=== PATIENT | female | born 1935 | race Caucasian/White ===

== ENCOUNTER 2016-09-08 18:21 | Emergency (ER) | payer OTHER ==
--- NOTE | 2016-09-08 18:27 | EDPHY ---
HPI/HX/ROS/PE/MDM Narrative: CHIEF COMPLAINT: Mechanical fall HPI: This patient is an 86 year old female with history of Parkinson's disease who presents to the Emergency Department with a scalp hematoma and left leg laceration secondary to a mechanical fall while at campus this evening. Per EMS, she bumped into her daughter while using her walker, causing her to fall backwards hitting her occipital scalp on the concrete ground. Upon arrival, she complains of mild headache and pain to the site of her lower leg laceration. She denies any additional injuries. Denies speech changes, vision changes, or focal weakness. No anticoagulant use. REVIEW OF SYSTEMS: Aside from elements discussed in the HPI, a comprehensive 10-point review of systems was reviewed and is negative. PMH: Parkinson's disease. SOCIAL HISTORY: Daughter at bedside. PHYSICAL EXAM: General:Patient is alert, in no acute distress. Head: Hematoma and abrasion to the right occiput. ENT:Eyes are normal to inspection. ENT inspection normal. Neck: Normal inspection. Full range of motion. Respiratory:No respiratory distress. Breath sounds normal bilaterally. Cardiovascular: Regular rate and rhythm. Strong peripheral pulses. Normal cap refill. Abdomen:The abdomen is nontender to palpation. There are no peritoneal signs. There are normal bowel sounds. Back: Normal to inspection. No tenderness to palpation. Skin: Normal color. No rash. Warm and dry. Extremities: Full range of motion. 6cm curved laceration to the left lateral leg. Neuro: Oriented x3. Motor and sensory function at baseline. ED Course: ED COURSE: 1822: Took EMS report at bedside. 86-year-old female with Parkinson's disease presents with a hematoma and abrasion to her occiput and left lower leg laceration secondary to a mechanical fall. No evidence of additional injuries and no neurological deficits are found on exam. Will proceed with CT of the head and laceration repair. 0: CT of the head is normal per Dr. Romo, radiologist. 1904: I discussed imaging results with the patient and her daught. Laceration repair was performed by myself (see procedure note). The patient will be discharged home in good condition with wound care instructions and customary return precautions. PROCEDURES: Procedure: Laceration repair. Verbal consent was obtained from the patient. The 6cm laceration on the left lower leg was anesthetized using lidocaine. The wound was cleaned with standard ED protocol, draped and explored to its base with a gloved finger. There were no deep structures involved. No tendon injury was identified. The wound was repaired in single layer technique with seven 4-0 Prolene sutures. The wound repair was simple. The procedure was performed by myself, Dr. Yuan. - Data Points Imaging Results: Imaging Impressions Head CT 09/08/16 18:26 Impression: 1. No acute intracranial findings. 2. Diffuse cerebral atrophy 3. Prominent periventricular and subcortical low attenuation most likely related to chronic microvascular ischemic gliosis but nonspecific. Findings discussed with Ras Yuan MD 09/08/2016 at 18:49. Imaging: Discussed imaging studies w/ fisher scallop Radiologist General Initial Vital Signs: Initial Vital Signs Temperature (C) 36.8 C 09/08/16 18:30 Heart Rate 75 09/08/16 18:30 Respiratory Rate 18 09/08/16 18:30 Blood Pressure 173/90 H 09/08/16 18:30 O2 Sat (%) 96 09/08/16 18:30 O2 Delivery Mode Room Air Allergies/Adverse Reactions: Penicillins Allergy (Unknown, Verified 09/08/16 18:45) as child Home Medications: Medication Instructions Recorded Ferrous Sulfate [Iron] 325 mg PO 09/08/16 Levodopa 1 09/08/16 Departure - Departure Disposition: Home, Routine, Self-Care Clinical Impression: Closed head injury Qualifiers: Encounter type: initial encounter Qualified Code(s): S09.90XA - Unspecified injury of head, initial encounter Fall Qualifiers: Encounter type: initial encounter Qualified Code(s): W19.XXXA - Unspecified fall, initial encounter Laceration of leg Qualifiers: Encounter type: initial encounter Laterality: left Qualified Code(s): S81.812A - Laceration without foreign body, left lower leg, initial encounter Condition: Good Instructions: Care For Your Stitches (ED), Laceration (ED), Head Injury (ED) Additional Instructions: 1. Keep your wound clean and dry. You may shower, but do not submerge your wound for an extended time (ie: swimming, bathing). 2. Your sutures need to be removed in 10 days. You may return to the Emergency Department to have these removed or follow-up with your PCP if you are no longer in [place]. 3. Return to the Emergency Department if you experience severe headache, confusion, difficulty with speaking or walking, weakness, or for other serious concerns. Referrals: Anabelle Stock MD [Medical Doctor] - As per Instructions Report Scribed for: Ras Yuan Report Scribed by: Brooklyn Allred Date of Report: 09/08/16 Time of Report: 18:22 Physician Review and Approval Statement: Portions of this note were transcribed by an ED scribe. I personally performed the history, physical exam, and medical decision making; and confirm the accuracy of the information in the transcribed note.
[2016-09-08 18:45] VITALS: TEMP 98.2
[2016-09-08 20:01] VITALS: BP 145/97; PULSE 71; RESP 20; O2SAT 95
== END 2016-09-08 20:01 | disposition home or self-care (01) ==
PROC: 0HQLXZZ Repair Left Lower Leg Skin, External Approach (ICD-10-PCS; principal; 2016-09-08)
DX: S81.812A Laceration without foreign body, left lower leg, initial encounter (principal); S09.90XA Unspecified injury of head, initial encounter; G20 Parkinson's disease; W18.39XA Other fall on same level, initial encounter